=== PATIENT | male | born 1975 | race Caucasian/White ===

== ENCOUNTER 2016-08-04 19:07 | Emergency (ER) | payer OTHER ==
[2016-08-04 19:11] VITALS: RESP 16
[2016-08-04] MEDS ORDERED: CEFTRIAXONE IM 350 MG/ML SYRINGE IM ONE (19:30)
[2016-08-04] MEDS ORDERED: PSEUDOEPHEDRINE HCL 120 MG EXT REL TAB PO ONE (19:33)
--- NOTE | 2016-08-04 19:34 | EDPHY ---
H & P Time Seen by Provider: 08/04/16 19:09 HPI/ROS: CHIEF COMPLAINT: Right ear pain greater than left HISTORY OF PRESENT ILLNESS: Started with symptoms of flu with fever and congestion a little bit of a cough this week, ear pain on Friday. Was seen Dave night at urgent care in [place] and started on Augmentin. History of multiple previous ear infections but usually gets better with oral antibiotics, worse today. Right ear pain greater than left. REVIEW OF SYSTEMS: No headache or neck pain. No dental pain or difficulty breathing or swallowing. Stuffy nose and congestion. PAST MEDICAL HISTORY: Multiple ear infections, not diabetic Social history: Recent air travel General Appearance: Alert and conversant, cooperative. Right tympanic membrane bulging and red but external canal is normal. No mastoid tenderness. Left tympanic membrane slightly red but not as bad as the right. Neck supple, oropharynx normal. Chest clear to auscultation bilaterally. No facial swelling. No trismus. Pharynx not red, no exudate, no gum swelling. No stridor or drooling. Normally conversant. Normal range of motion of the neck, no meningeal signs. Emergency Department course/MDM: Does not look septic or toxic. No mastoid tenderness. Ambulatory with normal speech. Face symmetric. Plan for IM ceftriaxone, oral decongestant. We discussed topical such as Auralgan but I am informed is not available. He will follow up with ENT tomorrow morning if not improving. Smoking Status: Former smoker Constitutional: Initial Vital Signs Temperature (C) 36.9 C 08/04/16 19:09 Heart Rate 75 08/04/16 19:09 Respiratory Rate 16 08/04/16 19:09 Blood Pressure 124/84 H 08/04/16 19:09 O2 Sat (%) 94 08/04/16 19:09 O2 Delivery Mode Room Air Allergies/Adverse Reactions: No Known Allergies Allergy (Unverified 08/04/16 19:11) Home Medications: Medication Instructions Recorded Amoxicillin/Potassium Clav 08/04/16 [Amox-Clav 875-125 mg Tablet] MDM/Departure - MDM Medications Given: Discontinued Medications Hydrocodone Bitart/Acetaminophen ([place] 5/325mg Prepack#6) 1 btl TAKEHOME EDNOW ONE Stop: 08/04/16 20:14 Last Admin: 04/02/17 20:14 Dose: 1 btl Ceftriaxone Sodium (Rocephin Im Syringe) 1,000 mg IM EDNOW ONE PRN Reason: Protocol Stop: 08/04/16 19:31 Last Admin: 08/04/16 20:00 Dose: 1,000 mg Pseudoephedrine HCl (Sudafed 12 Hour) 120 mg PO EDNOW ONE Stop: 08/04/16 19:34 Last Admin: 08/04/16 20:00 Dose: 120 mg - Depart Disposition: Home, Routine, Self-Care Clinical Impression: Otitis media Qualifiers: Otitis media type: unspecified Laterality: right Chronicity: unspecified Qualified Code(s): H66.91 - Otitis media, unspecified, right ear Condition: Good Instructions: Hydrocodone/Acetaminophen (By mouth), Otitis Media (ED) Referrals: Katerine Barrios MD [Medical Doctor] - 1 day without fail (ENT referral )
[2016-08-04] MEDS ORDERED: HYDROCOD/APAP 5/325 PREPACK#6 BTL TAKEHOME ONE ×2 (20:05→20:13)
[2016-08-04 20:16] VITALS: BP 126/81; PULSE 67; TEMP 97.9; O2SAT 96
== END 2016-08-04 20:16 | disposition home or self-care (01) ==
DX: H66.91 Otitis media, unspecified, right ear (principal); Z87.891 Personal history of nicotine dependence
CPT/HCPCS: J0696